=== PATIENT | female | born 1950 | race Caucasian/White ===

== ENCOUNTER 2021-06-16 10:10 | Outpatient (CLI) | payer MEDICARE, OTHER ==
[2021-06-16] MEDS ORDERED: CLOTRIMAZOLE 1% 15 GM TUBE TP ONE (10:41)
== END 2021-06-16 23:59 | disposition home or self-care (01) ==
LOC: WOU 10:10
PROVIDERS: ATTEND Specialist
DX: B35.6 Tinea cruris (principal); E11.9 Type 2 diabetes mellitus without complications; Z90.5 Acquired absence of kidney; I10 Essential (primary) hypertension
CPT/HCPCS: 87070; 87075; 87077; 87186; A6209; G0463

== ENCOUNTER 2021-06-23 10:00 | Outpatient (CLI) | payer MEDICARE, OTHER ==
[2021-06-23] MEDS ORDERED: CLOTRIMAZOLE 1% 15 GM TUBE TP ONE (10:43)
[2021-06-23] MEDS ORDERED: SILVER SULFADIAZINE CREAM 25 GM TUBE ONE (10:43)
== END 2021-06-23 23:59 | disposition home or self-care (01) ==
LOC: WOU 10:00
PROVIDERS: ATTEND Specialist
DX: B35.6 Tinea cruris (principal); E11.9 Type 2 diabetes mellitus without complications; I10 Essential (primary) hypertension; B95.61 Methicillin susceptible Staphylococcus aureus infection as the cause of diseases classified elsewhere
CPT/HCPCS: G0463

== ENCOUNTER 2021-06-30 08:45 | Outpatient (CLI) | payer MEDICARE, OTHER | END 2021-06-30 23:59 | disposition home or self-care (01) | LOC: WOU 08:45 | PROVIDERS: ATTEND Specialist | DX: B35.6 Tinea cruris (principal); B95.8 Unspecified staphylococcus as the cause of diseases classified elsewhere; E11.9 Type 2 diabetes mellitus without complications | CPT/HCPCS: G0463 ==

== ENCOUNTER 2021-07-28 09:15 | Outpatient (CLI) | payer MEDICARE, OTHER | END 2021-07-28 23:59 | disposition home or self-care (01) | LOC: WOU 09:15 | PROVIDERS: ATTEND Specialist | DX: B35.6 Tinea cruris (principal); E11.9 Type 2 diabetes mellitus without complications | CPT/HCPCS: G0463 ==